=== PATIENT | female | born 2000 | race Caucasian/White ===

== ENCOUNTER 2019-03-21 23:40 | Emergency (ER) | payer SELFPAY ==
[~2019-03-21] VITALS: Ht 152.4 cm; Wt 54.5 kg
[2019-03-22 00:06] VITALS: BP 137/83; TEMP 98.3
[2019-03-22] MEDS ORDERED: PROZAC 20MG20 MG PO (00:10)
[2019-03-22 00:58] VITALS: PULSE 94
== END 2019-03-22 00:58 | disposition home or self-care (01) ==
LOC: COL.ER 23:40
DX: S06.0X0A Concussion without loss of consciousness, initial encounter (principal); R40.2412 Glasgow coma scale score 13-15, at arrival to emergency department; V49.50XA Passenger injured in collision with unspecified motor vehicles in traffic accident, initial encounter; Y92.410 Unspecified street and highway as the place of occurrence of the external cause